=== PATIENT | female | born 1990 | race Hispanic/Latino ===

== ENCOUNTER 2021-01-19 17:53 | Emergency (ER) | payer OTHER | END 2021-01-19 19:18 | disposition home or self-care (01) | LOC: NAV ERS 17:53 | DX: O46.91 Antepartum hemorrhage, unspecified, first trimester (principal); Z3A.11 11 weeks gestation of pregnancy | CPT/HCPCS: 99283 ==

== ENCOUNTER 2022-08-02 14:52 | Emergency (ER) | payer OTHER ==
[2022-08-02] MEDS ORDERED: Ibuprofen 200 MG TAB ONE (15:15)
[2022-08-02] MEDS ORDERED: Bacitracin 1 PK ONE (15:26)
== END 2022-08-02 16:08 | disposition home or self-care (01) ==
LOC: NAV ERS 14:52
DX: S61.350A Open bite of right index finger with damage to nail, initial encounter (principal); W54.0XXA Bitten by dog, initial encounter
CPT/HCPCS: 99283